=== PATIENT | female | born 1950 | race American Indian/Alaskan Native ===

== ENCOUNTER 2017-10-27 00:46 | Emergency (ER) | payer MEDICARE ==
[2017-10-27] MEDS ORDERED: BOOSTRIX IM ONE (01:24)
[2017-10-27] MEDS ORDERED: NACL 0.9% IR ONE (01:24)
[2017-10-27 01:58] LABS: Basophils # (Auto) 0.1 K/mm3 (0.0-0.1); Basophils % (Auto) 0.7 % (0.0-1.8); Eosinophils # (Auto) 0.1 K/mm3 (0.0-0.4); Eosinophils % (Auto) 0.5 % (0.0-4.3); Hematocrit 43.8 % (30.3-42.9); Hemoglobin 14.2 gm/dl (10.1-14.3); Lymphocytes # (Auto) 2.1 K/mm3 (1.2-5.4); Lymphocytes % (Auto) 17.8 % (13.4-35.0); Mean Corpuscular HGB Conc 32 % (30-34); Mean Corpuscular Hemoglobin 29 pg (28-32); Mean Corpuscular Volume 90 fl (79-97); Monocytes # (Auto) 0.8 K/mm3 (0.0-0.8); Monocytes % (Auto) 6.5 % (0.0-7.3); Platelet Count 152 K/mm3 (140-440); Red Blood Count 4.89 M/mm3 (3.65-5.03); Red Cell Distribution Width 13.7 % (13.2-15.2)
[2017-10-27 02:33] LABS: BUN/Creatinine Ratio 24; Blood Urea Nitrogen 19 mg/dL (7-17); Calcium 9.7 mg/dL (8.4-10.2); Hemolysis Index 12
--- NOTE | 2017-10-27 02:39 | Emergency Department Report ---
ED Fall HPI - General Chief Complaint: Fall Stated Complaint: FALL Time Seen by Provider: 10/27/17 01:23 Source: patient, EMS Mode of arrival: Stretcher - History of Present Illness Initial Comments: Mrs. Watkins is a 67 yo female with hx of HTN and DM. She got up from seated position, felt dizzy. Subsequently fell onto her floor. She struck her head on object possible corner of table. Has forehead laceration. No LOC. No preceding chest pain. She only ate breakfast this morning. She has mild stomach upset today. She did not eat dinner tonight. She held her metformin dose. Complaint: fall -: Sudden Fall From: standing Fall Witnessed: yes, by family Place Fall Occurred: home Loss of Consciousness: none Prolonged Down Time?: no Symptoms Prior to Fall: lightheadedness, dizziness Location: head Severity: mild Context: tripped/slipped - Related Data Allergies Allergy/AdvReac Type Severity Reaction Status Date / Time No Known Allergies Allergy Verified 10/27/17 01:00 ED Review of Systems ROS: Stated complaint: FALL Other details as noted in HPI Comment: All other systems reviewed and negative Constitutional: denies: fever, malaise Cardiovascular: denies: chest pain ED Past Medical Hx - Past Medical History Previous Medical History?: Yes Hx Hypertension: Yes Hx Diabetes: Yes - Surgical History Past Surgical History?: Yes Additional Surgical History: Hysterectomy (total). Cataracts. Glaucoma. Foot - Social History Smoking Status: Former Smoker Substance Use Type: None ED Physical Exam - General Limitations: No Limitations General appearance: alert, in no apparent distress - Head Head exam: Present: normocephalic, other (4 cm vertical jagged laceration at the left central forehead central approximated with dried blood) - Eye Eye exam: Present: normal appearance, PERRL, EOMI. Absent: scleral icterus, conjunctival injection - ENT ENT exam: Present: mucous membranes moist - Neck Neck exam: Present: normal inspection. Absent: tenderness - Respiratory Respiratory exam: Present: normal lung sounds bilaterally. Absent: respiratory distress, wheezes, rales, rhonchi - Cardiovascular Cardiovascular Exam: Present: regular rate, normal rhythm, normal heart sounds. Absent: systolic murmur, diastolic murmur, rubs, gallop - GI/Abdominal GI/Abdominal exam: Present: soft, normal bowel sounds. Absent: distended, tenderness, guarding, rebound - Extremities Exam Extremities exam: Present: normal inspection - Back Exam Back exam: Present: normal inspection - Neurological Exam Neurological exam: Present: alert, oriented X3 - Psychiatric Psychiatric exam: Present: normal affect, normal mood - Skin Skin exam: Present: warm, dry, intact, normal color. Absent: rash ED Course Vital Signs 10/27/17 10/27/17 01:00 01:06 Temperature 97.7 F 97.7 F Pulse Rate 95 H 94 H Respiratory 16 16 Rate Blood Pressure 105/59 Blood Pressure 105/59 [Left] O2 Sat by Pulse 97 97 Oximetry - Laceration /Wound Repair Left Head Wound Location: face Wound Length (cm): 4 Wound's Depth, Shape: superficial, irregular Wound Explored: clean Irrigated w/ Saline (ccs): 100 Betadine Prep?: No Wound Debrided: minimal Wound Repaired With: Dermabond Layer Closure?: No Sterile Dressing Applied?: No Progress: 3 layers of dermabond applied ED Medical Decision Making - Lab Data Result diagrams: 10/27/17 01:35 10/27/17 01:35 - Medical Decision Making Mrs. Watkins presents s/p fall. She felt dizzy prior to the fall. Possibly orthostasis vs hypoglycemia. She feels well now. She actually feels hungry. Dermabond repair. TDap booster given in ED. Do not suspect syncope or severe head trauma. Critical care attestation.: If time is entered above; I have spent that time in minutes in the direct care of this critically ill patient, excluding procedure time. ED Disposition Clinical Impression: Facial laceration, Dizziness, Fall Disposition: -01 TO HOME OR SELFCARE Is pt being admited?: No Does the pt Need Aspirin: No Condition: Stable Instructions: Skin Adhesive Care (ED), Dizziness (ED), Fall Prevention for Older Adults (ED) Referrals: ANA LOERA MD [Other] - 3-5 Days Time of Disposition: 02:41
[2017-10-27 02:57] VITALS: BP 99/63
[2017-10-27] MEDS ORDERED: TYLENOL PO ONE (03:11)
== END 2017-10-27 03:21 | disposition home or self-care (01) ==
LOC: ED 00:46
DX: S01.81XA Laceration without foreign body of other part of head, initial encounter (principal); I10 Essential (primary) hypertension; E11.9 Type 2 diabetes mellitus without complications; Z87.891 Personal history of nicotine dependence; Z90.710 Acquired absence of both cervix and uterus; W18.30XA Fall on same level, unspecified, initial encounter; Y93.89 Activity, other specified; Y92.89 Other specified places as the place of occurrence of the external cause; Y99.8 Other external cause status
CPT/HCPCS: 36415; 80048; 85025; 90471; 90715; 99283